=== PATIENT | female | born 2000 | race Caucasian/White ===

== ENCOUNTER 2019-04-30 11:58 | Emergency (ER) | payer MEDICAID, OTHER, SELFPAY ==
--- NOTE | 2019-04-30 12:11 | EDM.PDOC ---
ED HPI GENERAL MEDICAL PROBLEM - General Chief Complaint: ENT Problem Stated Complaint: SINUS PRESSURE, WEIGHT LOSS Time Seen by Provider: 04/30/19 12:09 Source of Information: Reports: Patient History Limitations: Reports: No Limitations - History of Present Illness INITIAL COMMENTS - FREE TEXT/NARRATIVE: HISTORY AND PHYSICAL: History of present illness: Patient is a 18-year-old female who presents to the emergency room with complaints of sinus pressure/pain, nasal congestion 5 days. She is 12 weeks gestation and had previously been receiving routine SUBSTANCE ABUSE SERVICES DIRECTOR care. Recently moved here and has yet to establish care with a new provider. She does mention that during her she has had generalized nausea which has caused her to decrease her food intake, in fear of vomiting. Drinking plenty of fluids without difficulty. Patient denies any fever, chills, headache, change in vision , syncope or near syncope. Denies any chest pain, back pain, shortness of breath or cough. Denies any abdominal pain/cramping , vaginal bleeding/discharge , nausea, vomiting, diarrhea, constipation or dysuria. Has not noted any blood in urine or stool. States she has no related concerns. Review of systems: As per history of present illness and below otherwise all systems reviewed and negative. Past medical history: As per history of present illness and as reviewed below otherwise noncontributory. Surgical history: As per history of present illness and as reviewed below otherwise noncontributory. Social history: See social history for further information Family history: As per history of present illness and as reviewed below otherwise noncontributory. Physical exam: General: Well-developed and well-nourished 18-year-old female. Alert and oriented. Nontoxic appearing and in no acute distress. HEENT: Atraumatic, normocephalic, pupils equal and reactive bilaterally, negative for conjunctival pallor or scleral icterus, mucous membranes moist, TMs dull bilaterally, throat clear, neck supple, nontender, trachea midline. Frontal/maxillary sinus tenderness bilaterally. No drooling or trismus noted. No meningeal signs. No hot potato voice noted. Lungs: Clear to auscultation, breath sounds equal bilaterally, chest nontender. Heart: S1S2, regular rate and rhythm without overt murmur Abdomen: Soft, nondistended, nontender. Negative for masses or hepatosplenomegaly. Negative for costovertebral tenderness. Skin: Intact, warm, dry. No lesions or rashes noted. Extremities: Atraumatic, moves all extremities per self without difficulty or deficits, negative for cords or calf pain. Neurovascular unremarkable. Neuro: Awake, alert, oriented. Cranial nerves II through XII unremarkable. Cerebellum unremarkable. Motor and sensory unremarkable throughout. Exam nonfocal. Notes: heart tones were 155-160's. She offers no SUBSTANCE ABUSE SERVICES DIRECTOR concerns or complaints today. I will give her some Zofran for her nausea. Encouraged her to establish care with a new SUBSTANCE ABUSE SERVICES DIRECTOR as she is new to the area. A list of community resource was provided to her. Supportive care measures were reviewed and discussed. Voices understanding and is agreeable to plan of care. Denies any further questions or concerns at this time. Diagnostics: Heart Tones Therapeutics: None Prescription: Augmentin Zofran Impression: Sinusitis Nausea in Plan: 1. Continue taking her vitamin with folic acid once daily. 2. Take the antibiotic as prescribed. Zofran as needed for nausea. Increase your oral fluids. Small frequent meals throughout the day 3. Establish care with an ANGLE SHEARER either at [facility] or [facility]. Return to the ED as needed and as discussed. Definitive disposition and diagnosis as appropriate pending reevaluation and review of above. - Related Data Allergies Allergy/AdvReac Type Severity Reaction Status Date / Time No Known Allergies Allergy Verified 04/30/19 12:13 Home Meds: Home Meds Amoxicillin/Clavulanate K [Augmentin 875-125 MG] 1 tab PO BID 10 Days #20 tablet 04/30/19 [Rx] Ondansetron HCl [Zofran] 4 mg PO Q6HR PRN #20 tablet 04/30/19 [Rx] ED ROS ENT - Review of Systems Review Of Systems: ROS reveals no pertinent complaints other than HPI. ED EXAM, ENT - Physical Exam Exam: See Below (See dictation) Course - Vital Signs Last Recorded V/S: Last Vital Signs Temp 97 F 04/30/19 12:14 Pulse 93 04/30/19 12:14 Resp 16 04/30/19 12:14 BP 120/66 04/30/19 12:14 Pulse Ox 100 04/30/19 12:14 - Orders/Labs/Meds Orders: Active Orders 24 hr Category Date Time Status Heart Tones [ Heart Rate] [RC] Click to Edit Care 04/30/19 12:12 Active Departure - Departure Time of Disposition: 12:22 Disposition: Home, Self-Care 01 Clinical Impression: related nausea, antepartum Sinusitis Qualifiers: Sinusitis location: frontal Chronicity: acute Recurrence: non-recurrent Qualified Code(s): J01.10 - Acute frontal sinusitis, unspecified - Discharge Information Prescriptions: Ondansetron HCl [Zofran] 4 mg PO Q6HR PRN #20 tablet PRN Reason: Nausea Amoxicillin/Clavulanate K [Augmentin 875-125 MG] 1 tab PO BID 10 Days #20 tablet Instructions: Sinusitis, Adult, [id number] Referrals: PCP,None [Primary Care Provider] - Forms: ED Department Discharge Additional Instructions: The following information is given to patients seen in the emergency department who are being discharged to home. This information is to outline your options for follow-up care. We provide all patients seen in our emergency department with a follow-up referral. The need for follow-up, as well as the timing and circumstances, are variable depending upon the specifics of your emergency department visit. If you don't have a primary care physician on staff, we will provide you with a referral. We always advise you to contact your personal physician following an emergency department visit to inform them of the circumstance of the visit and for follow-up with them and/or the need for any referrals to a consulting specialist. The emergency department will also refer you to a specialist when appropriate. This referral assures that you have the opportunity for follow-up care with a specialist. All of these measure are taken in an effort to provide you with optimal care, which includes your follow-up. Under all circumstances we always encourage you to contact your private physician who remains a resource for coordinating your care. When calling for follow-up care, please make the office aware that this follow-up is from your recent emergency room visit. If for any reason you are refused follow-up, please contact the [facility] Emergency Department at and asked to speak to the emergency department charge nurse. [facility]: [facility] [address] [place] [id number] [facility] [address] [place] [id number] 1. Continue taking her vitamin with folic acid once daily. 2. Take the antibiotic as prescribed. Zofran as needed for nausea. Increase your oral fluids. Small frequent meals throughout the day 3. Establish care with an OBGYN either at [facility] or [facility]. Return to the ED as needed and as discussed. - My Orders Last 24 Hours: My Active Orders 04/30/19 12:12 Heart Tones [ Heart Rate] [RC] Click to Edit - Assessment/Plan Last 24 Hours: My Active Orders 04/30/19 12:12 Heart Tones [ Heart Rate] [RC] Click to Edit
== END 2019-04-30 12:49 | disposition home or self-care (01) ==
LOC: MW.ED 11:58
DX: O99.511 Diseases of the respiratory system complicating pregnancy, first trimester (principal); J01.10 Acute frontal sinusitis, unspecified; O99.89 Other specified diseases and conditions complicating pregnancy, childbirth and the puerperium; R11.0 Nausea; Z3A.12 12 weeks gestation of pregnancy
CPT/HCPCS: 99283